=== PATIENT | male | born 1960 | race Caucasian/White ===

== ENCOUNTER 2018-06-17 08:13 | Day surgery (SDC) | payer OTHER ==
[2018-06-17] MEDS ORDERED: PROPOFOL 60 ML (09:58)
[2018-06-17] MEDS ORDERED: LIDOCAINE 2% (SDV) 5 ML INJ (09:58)
== END 2018-06-17 15:11 | disposition home or self-care (01) ==
LOC: GIL 08:13
DX: Z12.11 Encounter for screening for malignant neoplasm of colon (principal); K29.50 Unspecified chronic gastritis without bleeding; B96.81 Helicobacter pylori [H. pylori] as the cause of diseases classified elsewhere; D12.5 Benign neoplasm of sigmoid colon; K21.0 Gastro-esophageal reflux disease with esophagitis; K44.9 Diaphragmatic hernia without obstruction or gangrene
CPT/HCPCS: 43239; 88305; 88312